=== PATIENT | female | born 2005 | race African-American/Black ===

== ENCOUNTER 2025-09-09 22:06 | Emergency (ER) | payer BC, SELFPAY ==
[2025-09-09 23:08] LABS: Bacteria/HPF None Seen HPF (None Seen); CAUTI Indications for Culture Pelvic or flank pain; Glucose, Urine (Dipstick) Normal (Negative); Leukocyte 25 Leu/uL (Negative); Protein, Urine (Dipstick) Negative (Neg-Trace); RBC/HPF 0-3 HPF (0-3); Specific Gravity, Urine 1.026 (1.002-1.036)
[2025-09-09 23:09] LABS: Pregnancy Test - Urine (BHCG) Negative (Negative); Pregu Control Background? CLEAR/WHITE (CLR/WHITE); Pregu Control Bar Appear? YES (CONTROL BAR)
[2025-09-09 23:10] LABS: Urine Culture Reflex No No
[2025-09-10 14:21] LABS: Chlamydia by PCR, Vaginal Swab Not Detected (NotDetected); GC by PCR, Vaginal Swab Not Detected (NotDetected)
== END 2025-09-09 22:55 ==
LOC: ERS 22:06
DX: N76.0 Acute vaginitis (principal)
CPT/HCPCS: 81001; 81025; 87480; 87491; 87510; 87591; 87660; 99283